=== PATIENT | male | born 1935 | race Caucasian/White ===

== ENCOUNTER 2024-08-20 11:16 | Inpatient (IN) | payer MEDICARE, OTHER ==
[~2024-08-20] VITALS: Ht 172.7 cm; Wt 59.9 kg
[2024-08-20] MEDS: IV NS 0.9% 1,000 ML BAG IV ONE ×2 (11:31→12:51)
[2024-08-20 11:55] LABS: BASOPHILS % (AUTO) 0.3 % (0.0-2.0); EOSINOPHILS % (AUTO) 0.3 % (0.0-6.0); HEMATOCRIT 36 % (39-51); HEMOGLOBIN 11.9 g/dL (13.5-17.5); LYMPHOCYTES % (AUTO) 6.5 % (20.0-44.0); MEAN CORPUSCULAR HEMOGLOBIN 31 PG (26.0-33.0); MEAN CORPUSCULAR HGB CONC 33 g/dl (31.0-36.0); MEAN CORPUSCULAR VOLUME 95 fL (80-96); MONOCYTES # (AUTO) 1.2 K/uL (0.1-1.30); MONOCYTES % (AUTO) 8.2 % (2.0-12.0); NEUTROPHILS # (AUTO) 12.5 K/uL (1.8-8.9); NEUTROPHILS % (AUTO) 84.7 % (43.0-81.0); PLATELET COUNT (AUTO) 260 K/uL (150-450); RED BLOOD CELL COUNT(AUTO) 3.81 MIL/uL (4.5-6.0); RED CELL DISTRIBUTION WIDTH 14.3 % (11.5-15.0); WHITE BLOOD COUNT (AUTO) 14.8 K/uL (4.3-11.0)
[2024-08-20 12:22] LABS: ALANINE AMINOTRANSFERASE 15 U/L (12-78); ALBUMIN 2.1 g/dL (3.4-5.0); ALKALINE PHOSPHATASE 166 U/L (46-116); ASPARTATE AMINOTRANSFERASE 14 U/L (15-37); BILIRUBIN,DIRECT 0.1 mg/dL (0.0-0.2); BILIRUBIN,TOTAL 0.3 mg/dL (0.2-1.0); CALCIUM, SERUM 8.9 mg/dL (8.5-10.1); CARBON DIOXIDE 31 mmol/L (21-32); CHLORIDE 96 mmol/L (98-107); CREATININE 1.2 mg/dL (0.6-1.3); NT-PRO BNP 339 pg/mL (0-125); POTASSIUM 4.2 mmol/L (3.5-5.1); SODIUM SERUM 133 mmol/L (136-145); TOTAL PROTEIN, SERUM 7.1 g/dL (6.4-8.2); UREA NITROGEN, BLOOD 21 mg/dL (7-18)
[2024-08-20 12:25] LABS: GLUCOSE 592 mg/dL (74-106)
[2024-08-20] MEDS ORDERED: INSULIN REGULAR, HUMAN 100 UNIT/ML 10 ML VIAL ONE (12:46)
[2024-08-20] MEDS: INSULIN REGULAR, HUMAN 100 UNIT/ML 10 ML VIAL SQ ONE (12:52)
[2024-08-20] MEDS ORDERED: LEVO100T PO (13:46)
[2024-08-20] MEDS ORDERED: CIPR2.5D14 EACHEYE (13:46)
[2024-08-20] MEDS ORDERED: LACT30003 PO (13:46)
[2024-08-20] MEDS ORDERED: ACET-868 PO (13:46)
[2024-08-20] MEDS ORDERED: DOCU100T2 PO (13:46)
[2024-08-20] MEDS ORDERED: OMEP20CA15 PO (13:46)
[2024-08-20] MEDS ORDERED: SPIR25TA6 PO (13:46)
[2024-08-20] MEDS ORDERED: CYAN-51 PO (13:46)
[2024-08-20] MEDS ORDERED: CHOL200026 PO (13:46)
[2024-08-20] MEDS ORDERED: CITA20TA19 PO (13:46)
[2024-08-20] MEDS ORDERED: AMLO5TAB4 PO (13:46)
[2024-08-20] MEDS ORDERED: GUAI100S11 GT (13:46)
[2024-08-20] MEDS ORDERED: SIMV20TA2 PO (13:46)
[2024-08-20] MEDS ORDERED: FURO-144 PO (13:46)
[2024-08-20] MEDS ORDERED: OMEG-138 PO (13:46)
[2024-08-20] MEDS ORDERED: GUAI100S69 PO (13:46)
[2024-08-20] MEDS ORDERED: TAMS-12 PO (13:46)
[2024-08-20] MEDS ORDERED: DABI150C PO (13:46)
[2024-08-20] MEDS ORDERED: IPRA3AMP22 IH (13:46)
[2024-08-20 14:56] VITALS: BP 120/72; TEMP 97.5; O2SAT 96
[2024-08-20] MEDS ORDERED: MAGNESIUM HYDROXIDE 30 ML UDC PO PRN (15:30)
[2024-08-20] MEDS ORDERED: ACETAMINOPHEN 325 MG TABLET PO PRN (15:30)
[2024-08-20] MEDS ORDERED: ONDANSETRON HCL/PF 4 MG/2 ML VIAL IVP PRN (15:30)
[2024-08-20] MEDS ORDERED: MAG HYDROX/AL HYDROX/SIMETH 30 ML UDC PO PRN (15:30)
[2024-08-20] MEDS ORDERED: ZOLPIDEM TARTRATE 5 MG TABLET PO PRN (15:30)
[2024-08-20] MEDS ORDERED: Z GUARD REMEDY 4 OZ OINT TP PRN (15:30)
[2024-08-20] MEDS ORDERED: DEXTROSE 50%-WATER 50 ML DISP.SYRIN IV PRN (15:30)
[2024-08-20] MEDS: IV NS 0.9% 1,000 ML IV PRN (15:45)
[2024-08-20] MEDS: ENOXAPARIN SODIUM 40 MG/0.4 ML DISP.SYRIN SQ SCH (15:58)
[2024-08-20] MEDS: BLOOD SUGAR DIAGNOSTIC 1 EACH STRIP VI SCH (16:46)
[2024-08-20] MEDS: INSULIN REGULAR, HUMAN 100 UNIT/ML 3 ML VIAL SQ PRN (16:48)
[2024-08-20] MEDS: LEVOFLOXACIN (250MG) 250 MG TABLET PO ONE (16:50)
[2024-08-20 20:00] VITALS: BP 110/68; TEMP 98.1; O2SAT 96
[2024-08-20 20:32] LABS: APPEARANCE,URINE CLEAR (CLEAR); BILIRUBIN,URINE NEGATIVE (NEGATIVE); BLOOD, URINE NEGATIVE Ery/uL (NEGATIVE); COLOR,URINE YELLOW (YELLOW); KETONES,URINE NEGATIVE (NEGATIVE); LEUKOCYTE ESTERASE ,URINE TRACE (NEGATIVE); NITRITE, URINE NEGATIVE (NEGATIVE); PH,URINE 6.5 (5.0-8.0); PROTEIN,URINE NEGATIVE (NEGATIVE); UGLUCOSE 2+ mg/dL (NEGATIVE); UROBILINOGEN,URINE 0.2 EU/dL (0.2)
[2024-08-20 20:43] LABS: RBC,URINE 0-2 /HPF (0-2)
[2024-08-20 20:44] LABS: ADD URINE CULTURE NO; BACTERIA,URINE Rare /HPF (None Seen); SQUAMOUS EPITHELIAL CELL,UR 0-2 /HPF (None Seen)
[2024-08-20 20:45] LABS: MUCUS,URINE Few /LPF (None Seen)
[2024-08-21] VITALS: BP 113/64; TEMP 98.2; O2SAT 94
[2024-08-21 04:00] VITALS: BP 108/68; TEMP 98.1; O2SAT 95
[2024-08-21 06:59] LABS: BASOPHILS % (AUTO) 0.4 % (0.0-2.0); EOSINOPHILS # (AUTO) 0.1 K/uL (0.0-0.7); EOSINOPHILS % (AUTO) 1.3 % (0.0-6.0); HEMATOCRIT 34 % (39-51); HEMOGLOBIN 11.3 g/dL (13.5-17.5); LYMPHOCYTES # (AUTO) 1.9 K/uL (0.8-4.8); LYMPHOCYTES % (AUTO) 16.6 % (20.0-44.0); MEAN CORPUSCULAR HEMOGLOBIN 31 PG (26.0-33.0); MEAN CORPUSCULAR HGB CONC 34 g/dl (31.0-36.0); MEAN CORPUSCULAR VOLUME 93 fL (80-96); MONOCYTES % (AUTO) 8.8 % (2.0-12.0); NEUTROPHILS # (AUTO) 8.6 K/uL (1.8-8.9); NEUTROPHILS % (AUTO) 72.9 % (43.0-81.0); PLATELET COUNT (AUTO) 239 K/uL (150-450); RED BLOOD CELL COUNT(AUTO) 3.59 MIL/uL (4.5-6.0); RED CELL DISTRIBUTION WIDTH 14.1 % (11.5-15.0); WHITE BLOOD COUNT (AUTO) 11.8 K/uL (4.3-11.0)
[2024-08-21 07:19] LABS: CALCIUM, SERUM 8.2 mg/dL (8.5-10.1); CREATININE 0.6 mg/dL (0.6-1.3); MAGNESIUM 1.7 mg/dL (1.8-2.4); PHOSPHORUS 2.5 mg/dL (2.5-4.9); POTASSIUM 3.6 mmol/L (3.5-5.1)
[2024-08-21 07:22] LABS: THYROID STIMULATING HORMONE 1.93 uIU/mL (0.358-3.74)
[2024-08-21] MEDS: PANTOPRAZOLE 40 MG TABLET.DR PO SCH (07:28)
[2024-08-21 08:00] VITALS: BP 106/58; TEMP 97.7; O2SAT 96
[2024-08-21] MEDS: MAGNESIUM OXIDE 400 MG TABLET PO ONE (11:42)
[2024-08-21 12:00] VITALS: BP 107/62; TEMP 98.2; O2SAT 92
[2024-08-21 16:00] VITALS: BP 115/66; TEMP 98.1; O2SAT 98
[2024-08-21] MEDS: LEVOFLOXACIN (250MG) 250 MG TABLET PO SCH (16:06)
[2024-08-21 20:00] VITALS: BP 118/65; TEMP 98.4; O2SAT 96
[2024-08-21] MEDS: *INSULIN REGULAR(HUMULIN R)HUM 100 UNIT/ML VIAL SQ PRN (21:26)
[2024-08-22] VITALS: BP 107/63; TEMP 98.2; O2SAT 96
[2024-08-22 04:00] VITALS: BP 127/68; TEMP 98.4; O2SAT 100
[2024-08-22 07:16] LABS: BASOPHILS % (AUTO) 0.4 % (0.0-2.0); EOSINOPHILS # (AUTO) 0.1 K/uL (0.0-0.7); EOSINOPHILS % (AUTO) 1.2 % (0.0-6.0); HEMATOCRIT 35 % (39-51); HEMOGLOBIN 11.7 g/dL (13.5-17.5); LYMPHOCYTES # (AUTO) 1.8 K/uL (0.8-4.8); MEAN CORPUSCULAR HEMOGLOBIN 32 PG (26.0-33.0); MEAN CORPUSCULAR HGB CONC 34 g/dl (31.0-36.0); MEAN CORPUSCULAR VOLUME 94 fL (80-96); MONOCYTES % (AUTO) 10.1 % (2.0-12.0); NEUTROPHILS # (AUTO) 6.6 K/uL (1.8-8.9); NEUTROPHILS % (AUTO) 69.3 % (43.0-81.0); PLATELET COUNT (AUTO) 244 K/uL (150-450); RED BLOOD CELL COUNT(AUTO) 3.68 MIL/uL (4.5-6.0); RED CELL DISTRIBUTION WIDTH 14.5 % (11.5-15.0); WHITE BLOOD COUNT (AUTO) 9.5 K/uL (4.3-11.0)
[2024-08-22 07:30] VITALS: BP 117/57; TEMP 97.5; O2SAT 97
[2024-08-22 07:43] LABS: CALCIUM, SERUM 8.5 mg/dL (8.5-10.1); CREATININE 0.5 mg/dL (0.6-1.3); MAGNESIUM 1.8 mg/dL (1.8-2.4)
[2024-08-22 08:00] VITALS: BP 118/68; TEMP 98.4; O2SAT 96
[2024-08-22 16:00] VITALS: BP 110/91; TEMP 97.5; O2SAT 99
[2024-08-22 20:59] VITALS: BP 118/68; TEMP 98.4; O2SAT 96
[2024-08-23] VITALS: BP 130/73; TEMP 98.6; O2SAT 97
[2024-08-23 06:55] LABS: CALCIUM, SERUM 8.3 mg/dL (8.5-10.1); CREATININE 0.5 mg/dL (0.6-1.3); POTASSIUM 3.6 mmol/L (3.5-5.1)
[2024-08-23 07:03] LABS: BASOPHILS % (AUTO) 0.4 % (0.0-2.0); EOSINOPHILS # (AUTO) 0.1 K/uL (0.0-0.7); EOSINOPHILS % (AUTO) 1.2 % (0.0-6.0); HEMATOCRIT 33 % (39-51); HEMOGLOBIN 11.4 g/dL (13.5-17.5); LYMPHOCYTES # (AUTO) 1.7 K/uL (0.8-4.8); LYMPHOCYTES % (AUTO) 16.4 % (20.0-44.0); MEAN CORPUSCULAR HEMOGLOBIN 32 PG (26.0-33.0); MEAN CORPUSCULAR HGB CONC 34 g/dl (31.0-36.0); MEAN CORPUSCULAR VOLUME 93 fL (80-96); MONOCYTES # (AUTO) 1.1 K/uL (0.1-1.30); MONOCYTES % (AUTO) 10.6 % (2.0-12.0); NEUTROPHILS # (AUTO) 7.3 K/uL (1.8-8.9); NEUTROPHILS % (AUTO) 71.4 % (43.0-81.0); PLATELET COUNT (AUTO) 240 K/uL (150-450); RED BLOOD CELL COUNT(AUTO) 3.57 MIL/uL (4.5-6.0); RED CELL DISTRIBUTION WIDTH 14.5 % (11.5-15.0); WHITE BLOOD COUNT (AUTO) 10.2 K/uL (4.3-11.0)
[2024-08-23 07:15] LABS: ALBUMIN 1.8 g/dL (3.4-5.0); BILIRUBIN,TOTAL 0.5 mg/dL (0.2-1.0); CALCIUM, SERUM 8.5 mg/dL (8.5-10.1); CREATININE 0.5 mg/dL (0.6-1.3); MAGNESIUM 1.9 mg/dL (1.8-2.4); PHOSPHORUS 2.8 mg/dL (2.5-4.9); POTASSIUM 3.6 mmol/L (3.5-5.1); TOTAL PROTEIN, SERUM 6.2 g/dL (6.4-8.2)
[2024-08-23 08:53] VITALS: BP 108/70; TEMP 98.1; O2SAT 100
[2024-08-23 16:19] VITALS: BP 99/80; TEMP 97.9; O2SAT 99
[2024-08-23 20:00] VITALS: BP_SYST 112; BP_SYST 116; BP_DIAS 67; BP_DIAS 68; TEMP 97.9; TEMP 98.1; O2SAT 97; O2SAT 98
[2024-08-24 07:28] LABS: CALCIUM, SERUM 8.4 mg/dL (8.5-10.1); CREATININE 0.6 mg/dL (0.6-1.3); POTASSIUM 3.9 mmol/L (3.5-5.1)
[2024-08-24 08:00] VITALS: BP 118/64; TEMP 97.7; O2SAT 98
[2024-08-24] MEDS ORDERED: *INS REG SQ (10:40)
[2024-08-24] MEDS ORDERED: INSU100V28 SQ (10:40)
[2024-08-24 16:00] VITALS: BP 91/57; TEMP 98.1; O2SAT 96
[2024-08-24 20:00] VITALS: BP 108/65; TEMP 99; O2SAT 97
[2024-08-25 08:00] VITALS: BP 116/74; TEMP 97.7; O2SAT 99
[2024-08-25 08:00] LABS: CALCIUM, SERUM 8.5 mg/dL (8.5-10.1); CREATININE 0.5 mg/dL (0.6-1.3); POTASSIUM 3.8 mmol/L (3.5-5.1)
== END 2024-08-25 12:25 | DRG 638 ==
LOC: ER 11:22 → TELE 13:49 → MED 08-23
PROVIDERS: ATTEND Nurse Practitioner Acute Care
DX: E11.65 Type 2 diabetes mellitus with hyperglycemia (principal); E44.0 Moderate protein-calorie malnutrition; E87.1 Hypo-osmolality and hyponatremia; I48.91 Unspecified atrial fibrillation; Z86.711 Personal history of pulmonary embolism; I11.9 Hypertensive heart disease without heart failure; Z87.820 Personal history of traumatic brain injury; I69.398 Other sequelae of cerebral infarction; R13.10 Dysphagia, unspecified; E88.09 Other disorders of plasma-protein metabolism, not elsewhere classified; E03.9 Hypothyroidism, unspecified; Z93.1 Gastrostomy status; Z79.4 Long term (current) use of insulin; Z79.899 Other long term (current) drug therapy
CPT/HCPCS: 36415; 71045-TC; 80048-TC; 80053-TC; 80061-TC; 80076-TC; 81001; 82010-TC; 82803-TC; 82962-TC; 83735-TC; 83880; 84100-TC; 84443-TC; 84484-TC; 85025-TC; 87081-TC; 87086-TC; 97110-TC; 97116-TC; 97530-TC; A4223; G0378; J1650; J1815; J7030

== ENCOUNTER 2024-11-06 08:30 | Inpatient (IN) | payer MEDICARE, OTHER ==
[~2024-11-06] VITALS: Ht 167.6 cm; Wt 60.8 kg
[2024-11-06] VITALS (48 sets, daily range): BP systolic 72–120; BP diastolic 50–73; TEMP 98.4–99.1; O2SAT 93–100
[~2024-11-06 08:30] MED LIST: *INS REG SQ; ACET-868 PO; AMLO5TAB4 PO; CHOL200026 PO; CITA20TA19 PO; CYAN-51 PO; DABI150C PO; DOCU100T2 PO; FURO-144 PO; GUAI100S11 GT; GUAI100S69 PO; INSU100V28 SQ; IPRA3AMP22 IH; LACT30003 PO; LEVO100T PO; OMEG-138 PO; OMEP20CA15 PO; SIMV20TA2 PO; SPIR25TA6 PO; TAMS-12 PO
[2024-11-06 08:50] LABS: PLATELET COUNT (AUTO) 293 K/uL (150-450); RED BLOOD CELL COUNT(AUTO) 3.83 MIL/uL (4.5-6.0); RED CELL DISTRIBUTION WIDTH 14.8 % (11.5-15.0); WHITE BLOOD COUNT (AUTO) 17.7 K/uL (4.3-11.0)
[2024-11-06 08:57] LABS: SODIUM SERUM 136 mmol/L (136-145)
[2024-11-06 08:58] LABS: CALCIUM, SERUM 9.3 mg/dL (8.5-10.1); CREATININE 1.0 mg/dL (0.6-1.3); UREA NITROGEN, BLOOD 42 mg/dL (7-18)
[2024-11-06] MEDS: AZITHROMYCIN 500 MG in IV D5W 250 ML IV ONE (09:00)
[2024-11-06 09:02] LABS: INR 1.3 (0.91-1.10)
[2024-11-06 09:03] LABS: ASPARTATE AMINOTRANSFERASE 25 U/L (15-37); TOTAL PROTEIN, SERUM 8.2 g/dL (6.4-8.2)
[2024-11-06 09:06] LABS: LACTIC ACID 3.5 mmol/L (0.4-2.0)
[2024-11-06] MEDS: IV NS 0.9% 1,000 ML BAG IV ONE (09:08)
[2024-11-06] MEDS: ACETAMINOPHEN 650 MG/SUPP.RECT RC ONE (09:09)
[2024-11-06] MEDS: CEFTRIAXONE 1GM BAG (ER ONLY) 50 ML IV ONE (09:09)
[2024-11-06] MEDS ORDERED: INSU100V7 SQ (09:21)
[2024-11-06] MEDS ORDERED: LEVO112T2 PO (09:21)
[2024-11-06] MEDS ORDERED: HUM100IN SQ (09:21)
[2024-11-06] MEDS ORDERED: CITA10TA17 PO (09:21)
[2024-11-06] MEDS ORDERED: METF-440 PO (09:21)
[2024-11-06] MEDS ORDERED: SODI100037 PO (09:21)
[2024-11-06] MEDS ORDERED: MELA5TAB PO (09:21)
[2024-11-06] MEDS ORDERED: SENN-261 PO (09:21)
[2024-11-06 09:22] LABS: ABG BASE EXCESS 6.0 mmol/L (-2.0-3.0); ABG OXYGEN SATURATION 99.2 % (94.0-98.0); ABG PCO2 45.6 mmHg (35.0-48.0); ABG PH 7.448 (7.350-7.450); ABG PO2 383.8 mmHg (83.0-108.0); ABG TOTAL HEMOGLOBIN 11.6 G/dL (13.5-17.5); FRACTIONATED INSPIRED OXYGEN 100.0 %; SET RATE, BG 16.0; SITE, ABG RIGHT BRACHIAL
[2024-11-06 09:37] LABS: APPEARANCE,URINE CLEAR (CLEAR); BLOOD, URINE 3+ Ery/uL (NEGATIVE); LEUKOCYTE ESTERASE ,URINE 3+ (NEGATIVE); NITRITE, URINE NEGATIVE (NEGATIVE); UGLUCOSE NEGATIVE (NEGATIVE)
[2024-11-06 09:47] LABS: ADD URINE CULTURE YES
[2024-11-06] MEDS: DEXTROSE 50%-WATER 50 ML DISP.SYRIN IVP ONE (10:05)
[2024-11-06] MEDS ORDERED: ONDANSETRON HCL/PF 4 MG/2 ML VIAL IVP PRN (10:30)
[2024-11-06] MEDS ORDERED: IPRATROPIUM NEB FS 0.5 MG/2.5 ML AMPUL.NEB NEB PRN (10:30)
[2024-11-06] MEDS ORDERED: DOSING PER PHARMACY-CEFEPIME IVPB XX PRN (10:30)
[2024-11-06] MEDS ORDERED: DOSING PER PHARMACY-VANCOMYCIN IV XX PRN (10:30)
[2024-11-06] MEDS ORDERED: KETOROLAC TROMETHAMINE 15 MG/ML VIAL ONE (10:42)
[2024-11-06] MEDS: KETOROLAC TROMETHAMINE INJ 30 MG/ML VIAL IV STA (10:45)
[2024-11-06] MEDS ORDERED: ENOXAPARIN SODIUM 40 MG/0.4 ML DISP.SYRIN SQ SCH (11:00)
[2024-11-06] MEDS: DABIGATRAN ETEXILATE MESYLATE 75 MG CAPSULE PO SCH (12:00)
[2024-11-06] MEDS ORDERED: DEXTROSE 50%-WATER 50 ML DISP.SYRIN IV PRN (12:30)
[2024-11-06] MEDS: CEFEPIME 2 GM in IV D5W 100 ML IV SCH (12:51)
[2024-11-06] MEDS: IV D5/ 0.9% NACL 1,000 ML IV SCH (13:03)
[2024-11-06] MEDS: VANCOMYCIN 1 GM in IV D5W 250ml IV ONE (13:48)
[2024-11-06] MEDS: NOREPINEPHRINE 8 MG in IV D5W 242 ML IV PRN (14:19)
[2024-11-06] MEDS: AMLODIPINE BESYLATE 5 MG TABLET PO SCH (17:00)
[2024-11-06] MEDS ORDERED: AMIODARONE 450 MG in IV D5W 250 ML IV PRN (17:30)
[2024-11-06] MEDS: BLOOD SUGAR DIAGNOSTIC 1 EACH STRIP IN SCH (17:54)
[2024-11-06] MEDS: INSULIN REGULAR, HUMAN 100 UNIT/ML 3 ML VIAL SQ PRN (17:58)
[2024-11-06] MEDS: AMIODARONE 150 MG in IV D5W 100 ML IV ONE (18:10)
[2024-11-06] MEDS: AMIODARONE 450 MG in IV D5W 241 ML IV PRN (19:07)
[2024-11-06] MEDS: PHENYLEPHRINE 50 MG in IV NS 0.9% 245 ML IV PRN (20:17)
[2024-11-06 21:12] LABS: HIV-1/2 ANTIBODY NON REACTIVE (NONREACTIVE)
[2024-11-06] MEDS: TAMSULOSIN 0.4 MG CAP.SR.24H PO SCH (21:28)
[2024-11-06] MEDS: SIMVASTATIN 20 MG TABLET PO SCH (21:28)
[2024-11-06] MEDS: SENNOSIDES 8.6 MG TABLET PO SCH (21:28)
[2024-11-07] VITALS (99 sets, daily range): BP systolic 82–133; BP diastolic 53–83; TEMP 97.7–98.7; O2SAT 86–100
[2024-11-07 05:11] LABS: PLATELET COUNT (AUTO) 230 K/uL (150-450); RED BLOOD CELL COUNT(AUTO) 2.95 MIL/uL (4.5-6.0); RED CELL DISTRIBUTION WIDTH 14.9 % (11.5-15.0)
[2024-11-07 05:36] LABS: WHITE BLOOD COUNT (AUTO) 32.2 K/uL (4.3-11.0)
[2024-11-07 06:01] LABS: CREATINE KINASE, TOTAL 28 U/L (39-308); LDL 28 mg/dL (0-99)
[2024-11-07 06:29] LABS: ASPARTATE AMINOTRANSFERASE 42 U/L (15-37); CALCIUM, SERUM 8.1 mg/dL (8.5-10.1); CREATININE 0.9 mg/dL (0.6-1.3); PHOSPHORUS 3.6 mg/dL (2.5-4.9); SODIUM SERUM 138 mmol/L (136-145); TOTAL PROTEIN, SERUM 6.8 g/dL (6.4-8.2); UREA NITROGEN, BLOOD 40 mg/dL (7-18)
[2024-11-07] MEDS: LEVOTHYROXINE SODIUM 112 MCG TABLET PO SCH (07:30)
[2024-11-07 08:02] LABS: LYMPHOCYTES % (MANUAL) 1 % (16-48); MONOCYTES % (MANUAL) 5 % (0-11.0); NEUTROPHILS % (MANUAL) 94 (42-76)
[2024-11-07 08:03] LABS: PLATELET ESTIMATE ADEQUATE
[2024-11-07] MEDS: PANTOPRAZOLE 40 MG VIAL IV SCH (08:20)
[2024-11-07] MEDS: CITALOPRAM HYDROBROMIDE 10 MG TABLET PO SCH (09:00)
[2024-11-07] MEDS: DOCUSATE SODIUM 100 MG CAPSULE PO SCH (09:00)
[2024-11-07] MEDS: HYDROCORTISONE SOD SUCCINATE 100 MG/2 ML VIAL IV SCH (09:00)
[2024-11-07] MEDS: Z GUARD REMEDY 4 OZ OINT TP SCH (10:00)
[2024-11-07] MEDS: VANCOMYCIN HCL 1.25 GM in IV D5W 250 ML IV SCH (13:13)
[2024-11-07 15:24] LABS: CREATININE, URINE 48.0 MG/DL (30.0-125.0); URINE SODIUM, RANDOM 11.0 mmol/l (40-220); URINE TOTAL PROTEIN 48.2 mg/dL (0-11.9)
[2024-11-07] MEDS: ENOXAPARIN SODIUM 60 MG/0.6 ML DISP.SYRIN SQ SCH (17:41)
[2024-11-07] MEDS: IV D5/ 0.9% NACL 1,000 ML IV PRN (19:44)
[2024-11-08] VITALS (78 sets, daily range): BP systolic 91–138; BP diastolic 57–83; TEMP 98–98.4; O2SAT 91–100
[2024-11-08 05:02] LABS: PLATELET COUNT (AUTO) 218 K/uL (150-450); RED BLOOD CELL COUNT(AUTO) 3.00 MIL/uL (4.5-6.0); RED CELL DISTRIBUTION WIDTH 15.1 % (11.5-15.0); WHITE BLOOD COUNT (AUTO) 27.5 K/uL (4.3-11.0)
[2024-11-08 05:26] LABS: CALCIUM, SERUM 8.7 mg/dL (8.5-10.1); CREATININE 0.8 mg/dL (0.6-1.3); SODIUM SERUM 137.0 mmol/L (136-145); UREA NITROGEN, BLOOD 37.0 mg/dL (7-18)
[2024-11-08] MEDS: CEFEPIME 2 GM in IV D5W 100 ML IV SCH (08:38)
[2024-11-08] MEDS: ACETAMINOPHEN 325 MG TABLET PO PRN (10:54)
[2024-11-08] MEDS: DIGOXIN INJ 0.5 MG/2 ML AMPUL IV SCH (12:15)
[2024-11-09] VITALS (39 sets, daily range): BP systolic 99–142; BP diastolic 64–83; TEMP 97.8–99.2; O2SAT 92–100
[2024-11-09] MEDS: ACETAMINOPHEN 650 MG/SUPP.RECT RC PRN (01:46)
[2024-11-09 04:46] LABS: PLATELET COUNT (AUTO) 216 K/uL (150-450); RED BLOOD CELL COUNT(AUTO) 3.07 MIL/uL (4.5-6.0); RED CELL DISTRIBUTION WIDTH 14.7 % (11.5-15.0); WHITE BLOOD COUNT (AUTO) 17.8 K/uL (4.3-11.0)
[2024-11-09] MEDS: FENTANYL PF 100MCG/2ML AMPUL IV ONE (04:54)
[2024-11-09 05:06] LABS: CALCIUM, SERUM 9.0 mg/dL (8.5-10.1); CREATININE 0.8 mg/dL (0.6-1.3); SODIUM SERUM 139.0 mmol/L (136-145); UREA NITROGEN, BLOOD 32.0 mg/dL (7-18)
[2024-11-09 05:19] LABS: NT-PRO BNP 6542.0 pg/mL (0-125)
[2024-11-09 06:07] LABS: PTH, INTACT 54 pg/mL (15-65)
[2024-11-09 07:25] LABS: ABG BASE EXCESS 2.9 mmol/L (-2.0-3.0); ABG OXYGEN SATURATION 95.5 % (94.0-98.0); ABG PCO2 49.2 mmHg (35.0-48.0); ABG PH 7.382 (7.350-7.450); ABG PO2 82.3 mmHg (83.0-108.0); ABG TOTAL HEMOGLOBIN 10.4 G/dL (13.5-17.5); FLOW, BLOOD GAS 40.00 L/min (0.00-30.00); FRACTIONATED INSPIRED OXYGEN 40.0 %; SITE, ABG LEFT RADIAL
[2024-11-09] MEDS: MEROPENEM 1 G in IV NS 0.9% 100 ML IV SCH (12:42)
[2024-11-09] MEDS: HYDROCORTISONE SOD SUCCINATE 100 MG/2 ML VIAL IV SCH (12:58)
[2024-11-09] MEDS: Z GUARD REMEDY 4 OZ OINT TP PRN (21:07)
[2024-11-10] VITALS (20 sets, daily range): BP systolic 105–147; BP diastolic 57–102; TEMP 97–97.6; O2SAT 94–100
[2024-11-10 04:07] LABS: PLATELET COUNT (AUTO) 209 K/uL (150-450); RED BLOOD CELL COUNT(AUTO) 3.23 MIL/uL (4.5-6.0); RED CELL DISTRIBUTION WIDTH 14.5 % (11.5-15.0); WHITE BLOOD COUNT (AUTO) 15.4 K/uL (4.3-11.0)
[2024-11-10 04:16] LABS: CALCIUM, SERUM 9.0 mg/dL (8.5-10.1); CREATININE 0.7 mg/dL (0.6-1.3); SODIUM SERUM 149.0 mmol/L (136-145); UREA NITROGEN, BLOOD 27.0 mg/dL (7-18)
[2024-11-10 06:07] LABS: *SPE A/G RATIO 0.6 (0.7-1.7); *SPE ALBUMIN 2.3 g/dL (2.9-4.4); *SPE ALPHA-1-GLOBULIN 0.4 g/dL (0.0-0.4); *SPE ALPHA-2-GLOBULIN 0.8 g/dL (0.4-1.0); *SPE BETA GLOBULIN 0.8 g/dL (0.7-1.3); *SPE GLOBULIN, TOTAL 3.6 g/dL (2.2-3.9); *SPE M-SPIKE 0.5 g/dL (Not Observed); *SPE PROTEIN TOTAL 5.9 g/dL (6.0-8.5); *SPEGAMMA GLOBULIN 1.6 g/dL (0.4-1.8)
[2024-11-10] MEDS ORDERED: IV D5W 1,000 ML IV PRN (09:00)
[2024-11-10] MEDS: IV D5W 1,000 ML IV SCH (09:17)
[2024-11-10] MEDS: POTASSIUM CL. PREMIX PERIPHER. 50 ML IV SCH (09:37)
[2024-11-10] MEDS: HYDROCORTISONE SOD SUCCINATE 100 MG/2 ML VIAL IV SCH (12:03)
[2024-11-11] VITALS (8 sets, daily range): BP systolic 114–152; BP diastolic 62–81; TEMP 97.5–98.4; O2SAT 82–100
[2024-11-11 07:35] LABS: PLATELET COUNT (AUTO) 220 K/uL (150-450); RED BLOOD CELL COUNT(AUTO) 3.53 MIL/uL (4.5-6.0); RED CELL DISTRIBUTION WIDTH 14.6 % (11.5-15.0); WHITE BLOOD COUNT (AUTO) 10.2 K/uL (4.3-11.0)
[2024-11-11 07:55] LABS: CALCIUM, SERUM 8.8 mg/dL (8.5-10.1); CREATININE 0.8 mg/dL (0.6-1.3); SODIUM SERUM 147.0 mmol/L (136-145); UREA NITROGEN, BLOOD 20.0 mg/dL (7-18)
[2024-11-11] MEDS ORDERED: POTASSIUM CHLORIDE 20 MEQ TAB.PRT.SR PO SCH (09:30)
[2024-11-11] MEDS: POTASSIUM CHLORIDE 20 MEQ TAB.PRT.SR PO ONE (09:54)
[2024-11-11] MEDS: IV D5W 1,000 ML IV PRN (12:55)
[2024-11-11] MEDS ORDERED: DOSING PER PHARMACY-AMIODARONE DRIP XX PRN (13:00)
[2024-11-11] MEDS ORDERED: AMIODARONE 450 MG in IV D5W 241 ML IV PRN (13:30)
[2024-11-12] VITALS (27 sets, daily range): BP systolic 121–157; BP diastolic 63–87; TEMP 97.7–98.3; O2SAT 90–100
[2024-11-12 05:17] LABS: ABG BASE EXCESS 9.7 mmol/L (-2.0-3.0); ABG OXYGEN SATURATION 93.5 % (94.0-98.0); ABG PCO2 67.9 mmHg (35.0-48.0); ABG PH 7.359 (7.350-7.450); ABG PO2 70.1 mmHg (83.0-108.0); ABG TOTAL HEMOGLOBIN 11.6 G/dL (13.5-17.5); FLOW, BLOOD GAS 15.00 L/min (0.00-30.00); SITE, ABG RIGHT RADIAL
[2024-11-12 07:12] LABS: PLATELET COUNT (AUTO) 184 K/uL (150-450); RED BLOOD CELL COUNT(AUTO) 3.42 MIL/uL (4.5-6.0); RED CELL DISTRIBUTION WIDTH 14.5 % (11.5-15.0); WHITE BLOOD COUNT (AUTO) 11.6 K/uL (4.3-11.0)
[2024-11-12 07:49] LABS: ASPARTATE AMINOTRANSFERASE 25.0 U/L (15-37); CALCIUM, SERUM 8.3 mg/dL (8.5-10.1); CREATININE 0.8 mg/dL (0.6-1.3); PHOSPHORUS 1.8 mg/dL (2.5-4.9); SODIUM SERUM 144.0 mmol/L (136-145); TOTAL PROTEIN, SERUM 6.5 g/dL (6.4-8.2); UREA NITROGEN, BLOOD 24.0 mg/dL (7-18)
[2024-11-12] MEDS: HYDROCORTISONE SOD SUCCINATE 100 MG/2 ML VIAL IV SCH (09:04)
[2024-11-12] MEDS: PANTOPRAZOLE 40 MG TABLET.DR PO SCH (09:34)
[2024-11-12] MEDS: POTASSIUM PHOSPHATE MM 15 MMOL in IV NS 0.9% 250 ML IV SCH (10:51)
[2024-11-12] MEDS: AMIODARONE 150 MG in IV D5W 100 ML IV ONE (20:53)
[2024-11-12] MEDS: ALBUTEROL FS 2.5 MG/3 ML VIAL.NEB NEB PRN (22:59)
[2024-11-13] VITALS (35 sets, daily range): BP systolic 100–156; BP diastolic 64–91; TEMP 98–98.9; O2SAT 90–100
[2024-11-13] MEDS: POTASSIUM CL. PREMIX PERIPHER. 50 ML IV SCH (08:51)
[2024-11-13] MEDS: FUROSEMIDE 40 MG/4 ML VIAL IV SCH (08:52)
[2024-11-13] MEDS: AMIODARONE 450 MG in IV D5W 241 ML IV PRN (08:53)
[2024-11-13] MEDS ORDERED: AMIODARONE 450 MG in IV D5W 250 ML IV PRN (09:00)
[2024-11-13 10:22] LABS: PLATELET COUNT (AUTO) 175 K/uL (150-450); RED BLOOD CELL COUNT(AUTO) 3.05 MIL/uL (4.5-6.0); RED CELL DISTRIBUTION WIDTH 14.9 % (11.5-15.0); WHITE BLOOD COUNT (AUTO) 10.9 K/uL (4.3-11.0)
[2024-11-13 10:34] LABS: ASPARTATE AMINOTRANSFERASE 26.0 U/L (15-37); CALCIUM, SERUM 8.1 mg/dL (8.5-10.1); CREATININE 0.7 mg/dL (0.6-1.3); PHOSPHORUS 1.8 mg/dL (2.5-4.9); TOTAL PROTEIN, SERUM 6.0 g/dL (6.4-8.2); UREA NITROGEN, BLOOD 15.0 mg/dL (7-18)
[2024-11-13 10:48] LABS: SODIUM SERUM 141.0 mmol/L (136-145)
[2024-11-13] MEDS: NEUTRA PHOS 1 POWD.PACKET PO ONE (16:32)
[2024-11-14] VITALS (27 sets, daily range): BP systolic 122–155; BP diastolic 57–75; TEMP 98–98.2; O2SAT 95–100
[2024-11-14] MEDS: HYDROCODONE/APAP 5/325MG TABLET PO PRN (04:51)
[2024-11-14 05:01] LABS: PLATELET COUNT (AUTO) 183 K/uL (150-450); RED BLOOD CELL COUNT(AUTO) 2.96 MIL/uL (4.5-6.0); RED CELL DISTRIBUTION WIDTH 14.4 % (11.5-15.0); WHITE BLOOD COUNT (AUTO) 11.4 K/uL (4.3-11.0)
[2024-11-14 05:24] LABS: ASPARTATE AMINOTRANSFERASE 23.0 U/L (15-37); CALCIUM, SERUM 7.8 mg/dL (8.5-10.1); CREATININE 0.6 mg/dL (0.6-1.3); PHOSPHORUS 2.0 mg/dL (2.5-4.9); TOTAL PROTEIN, SERUM 5.8 g/dL (6.4-8.2); UREA NITROGEN, BLOOD 14.0 mg/dL (7-18)
[2024-11-14 05:51] LABS: SODIUM SERUM 140.0 mmol/L (136-145)
[2024-11-14] MEDS: AMIODARONE HCL 200 MG TABLET PO SCH ×2 (08:16→09:20)
[2024-11-14] MEDS: NEUTRA PHOS 1 POWD.PACKET PO ONE (17:09)
[2024-11-14] MEDS: SENNOSIDES 8.6 MG TABLET PO SCH (21:38)
[2024-11-15] VITALS (32 sets, daily range): BP systolic 110–161; BP diastolic 56–75; TEMP 97.6–99.5; O2SAT 80–100
[2024-11-15 13:31] LABS: PLATELET COUNT (AUTO) 182 K/uL (150-450); RED BLOOD CELL COUNT(AUTO) 2.99 MIL/uL (4.5-6.0); RED CELL DISTRIBUTION WIDTH 15.2 % (11.5-15.0); WHITE BLOOD COUNT (AUTO) 13.9 K/uL (4.3-11.0)
[2024-11-15 13:50] LABS: ASPARTATE AMINOTRANSFERASE 19.0 U/L (15-37); CALCIUM, SERUM 7.8 mg/dL (8.5-10.1); CREATININE 0.5 mg/dL (0.6-1.3); PHOSPHORUS 2.4 mg/dL (2.5-4.9); SODIUM SERUM 144.0 mmol/L (136-145); TOTAL PROTEIN, SERUM 5.8 g/dL (6.4-8.2); UREA NITROGEN, BLOOD 14.0 mg/dL (7-18)
[2024-11-15] MEDS: NEUTRA PHOS 1 POWD.PACKET PO ONE (15:33)
[2024-11-16] VITALS (34 sets, daily range): BP systolic 128–173; BP diastolic 58–86; TEMP 97.5–99; O2SAT 60–100
[2024-11-16 04:37] LABS: PLATELET COUNT (AUTO) 178 K/uL (150-450); RED BLOOD CELL COUNT(AUTO) 3.00 MIL/uL (4.5-6.0); RED CELL DISTRIBUTION WIDTH 14.8 % (11.5-15.0); WHITE BLOOD COUNT (AUTO) 18.0 K/uL (4.3-11.0)
[2024-11-16 05:32] LABS: LACTIC ACID 0.9 mmol/L (0.4-2.0)
[2024-11-16 06:10] LABS: ASPARTATE AMINOTRANSFERASE 21.0 U/L (15-37); CALCIUM, SERUM 8.1 mg/dL (8.5-10.1); CREATININE 0.5 mg/dL (0.6-1.3); NT-PRO BNP 636.0 pg/mL (0-125); PHOSPHORUS 2.4 mg/dL (2.5-4.9); SODIUM SERUM 146.0 mmol/L (136-145); TOTAL PROTEIN, SERUM 6.1 g/dL (6.4-8.2); UREA NITROGEN, BLOOD 13.0 mg/dL (7-18)
[2024-11-16] MEDS: IV D5W 1,000 ML IV PRN (13:48)
[2024-11-16] MEDS: NEUTRA PHOS 1 POWD.PACKET PO ONE (15:30)
[2024-11-17] VITALS (28 sets, daily range): BP systolic 129–166; BP diastolic 54–73; TEMP 97.8–98.2; O2SAT 92–100
[2024-11-17 04:17] LABS: PLATELET COUNT (AUTO) 185 K/uL (150-450); RED BLOOD CELL COUNT(AUTO) 3.06 MIL/uL (4.5-6.0); RED CELL DISTRIBUTION WIDTH 15.2 % (11.5-15.0); WHITE BLOOD COUNT (AUTO) 17.1 K/uL (4.3-11.0)
[2024-11-17 04:39] LABS: ASPARTATE AMINOTRANSFERASE 21.0 U/L (15-37); CALCIUM, SERUM 8.2 mg/dL (8.5-10.1); CREATININE 0.5 mg/dL (0.6-1.3); PHOSPHORUS 2.6 mg/dL (2.5-4.9); SODIUM SERUM 145.0 mmol/L (136-145); TOTAL PROTEIN, SERUM 6.4 g/dL (6.4-8.2); UREA NITROGEN, BLOOD 14.0 mg/dL (7-18)
[2024-11-17 09:43] LABS: ABG BASE EXCESS 15.1 mmol/L (-2.0-3.0); ABG OXYGEN SATURATION 96.9 % (94.0-98.0); ABG PCO2 84.3 mmHg (35.0-48.0); ABG PH 7.334 (7.350-7.450); ABG PO2 98.1 mmHg (83.0-108.0); ABG TOTAL HEMOGLOBIN 10.0 G/dL (13.5-17.5); FLOW, BLOOD GAS 60.00 L/min (0.00-30.00); FRACTIONATED INSPIRED OXYGEN 65.0 %; SITE, ABG LEFT RADIAL
[2024-11-17] MEDS: KETOROLAC TROMETHAMINE 15 MG/ML VIAL IV ONE (15:25)
== END 2024-11-17 18:17 | disposition hospice, inpatient (51) | DRG 871 ==
LOC: ER 08:41 → ICU 10:04 → TELE-TD 11-10 15:18 → TELE1 11-11 12:00 → ICU 11-12 06:30
PROVIDERS: ADMIT Nurse Practitioner Acute Care
PROC: 5A1935Z Respiratory Ventilation, Less than 24 Consecutive Hours (ICD-10-PCS; principal; 2024-11-06)
PROC: 5A09457 Assistance with Respiratory Ventilation, 24-96 Consecutive Hours, Continuous Positive Airway Pressure (ICD-10-PCS; 2024-11-06)
PROC: 02HV33Z Insertion of Infusion Device into Superior Vena Cava, Percutaneous Approach (ICD-10-PCS; 2024-11-06)
PROC: B548ZZA Ultrasonography of Superior Vena Cava, Guidance (ICD-10-PCS; 2024-11-06)
PROC: 5A09357 Assistance with Respiratory Ventilation, Less than 24 Consecutive Hours, Continuous Positive Airway Pressure (ICD-10-PCS; 2024-11-12)
DX: A41.51 Sepsis due to Escherichia coli [E. coli] (principal); J15.69 Pneumonia due to other Gram-negative bacteria; J96.01 Acute respiratory failure with hypoxia; R65.21 Severe sepsis with septic shock; J69.0 Pneumonitis due to inhalation of food and vomit; E11.52 Type 2 diabetes mellitus with diabetic peripheral angiopathy with gangrene; Z16.12 Extended spectrum beta lactamase (ESBL) resistance; E44.0 Moderate protein-calorie malnutrition; N39.0 Urinary tract infection, site not specified; L97.919 Non-pressure chronic ulcer of unspecified part of right lower leg with unspecified severity; I70.261 Atherosclerosis of native arteries of extremities with gangrene, right leg; Z16.24 Resistance to multiple antibiotics; E87.4 Mixed disorder of acid-base balance; E87.0 Hyperosmolality and hypernatremia; I48.20 Chronic atrial fibrillation, unspecified; I11.0 Hypertensive heart disease with heart failure; R65.20 Severe sepsis without septic shock; I50.9 Heart failure, unspecified; E11.40 Type 2 diabetes mellitus with diabetic neuropathy, unspecified; E86.0 Dehydration; Z20.822 Contact with and (suspected) exposure to COVID-19; B96.20 Unspecified Escherichia coli [E. coli] as the cause of diseases classified elsewhere; B96.5 Pseudomonas (aeruginosa) (mallei) (pseudomallei) as the cause of diseases classified elsewhere; D64.9 Anemia, unspecified; Z66 Do not resuscitate; Z51.5 Encounter for palliative care; I69.398 Other sequelae of cerebral infarction; Z74.01 Bed confinement status; Z86.711 Personal history of pulmonary embolism; E03.9 Hypothyroidism, unspecified; E88.09 Other disorders of plasma-protein metabolism, not elsewhere classified; E78.5 Hyperlipidemia, unspecified; B96.89 Other specified bacterial agents as the cause of diseases classified elsewhere; E11.649 Type 2 diabetes mellitus with hypoglycemia without coma; F32.A Depression, unspecified; Z79.01 Long term (current) use of anticoagulants; Z79.4 Long term (current) use of insulin; Z79.84 Long term (current) use of oral hypoglycemic drugs; Z79.899 Other long term (current) drug therapy; R13.10 Dysphagia, unspecified; Y95 Nosocomial condition; M89.8X9 Other specified disorders of bone, unspecified site; K21.9 Gastro-esophageal reflux disease without esophagitis; K59.00 Constipation, unspecified; I77.1 Stricture of artery
CPT/HCPCS: 31720; 36415; 36569; 36600; 71045-TC; 73630-TC; 74230-TC; 80048-TC; 80053-TC; 80061-TC; 80076-TC; 80202-TC; 81001; 82533; 82550-TC; 82570-TC; 82803-TC; 82962-TC; 83605-TC; 83735-TC; 83880; 83970; 84100-TC; 84155; 84165; 84300-TC; 84484-TC; 85025-TC; 85730-TC; 86803; 87040-TC; 87070-TC; 87081-TC; 87086-TC; 87186-TC; 87205-TC; 87806; 92526; 92611-TC; 93307-TC; 94640-TC; 94799-TC; 99082-TC; A4223; A6213; G0378; J0282; J0456; J0692; J0696; J1160; J1650; J1720; J1815; J1885; J1938; J2185; J2470; J3010; J3370; J3480; J3490; J7030; J7040; J7042; J7050; J7060; J7070

== ENCOUNTER 2024-11-17 18:26 | Inpatient (IN) | payer MEDICARE, OTHER ==
[~2024-11-17 18:26] MED LIST changes: -*INS REG SQ; +CITA10TA17 PO; -CITA20TA19 PO; -CYAN-51 PO; -GUAI100S11 GT; -GUAI100S69 PO; +HUM100IN SQ; -INSU100V28 SQ; +INSU100V7 SQ; -LACT30003 PO; -LEVO100T PO; +LEVO112T2 PO; +MELA5TAB PO; +METF-440 PO; +SENN-261 PO; +SODI100037 PO
[2024-11-17] MEDS ORDERED: LORAZEPAM INJ 2 MG/ML VIAL IV PRN (19:30)
[2024-11-17] MEDS ORDERED: MORPHINE SULFATE INJ 2 MG/ML DISP.SYRIN IV PRN (19:30)
[2024-11-17] MEDS: KEY,NONCONTROL,TO KEEP IN PYXI 1 EA MC ONE (19:52)
[2024-11-17 20:00] VITALS: BP 159/72; TEMP 97.7; O2SAT 95
[2024-11-17] MEDS: SCOPOLAMINE PATCH 1 MG/72HR TD SCH (20:07)
[2024-11-17] MEDS: MORPHINE SULFATE PF DRIP 100 MG in IV D5W 96 ML IV PRN (20:12)
[2024-11-18 04:00] VITALS: BP 85/38; TEMP 95; O2SAT 95
[2024-11-18 08:00] VITALS: BP_SYST 67; BP_SYST 71; BP_DIAS 23; BP_DIAS 26; TEMP 91.8; TEMP 92.1; O2SAT 99
[2024-11-18] MEDS: KEY,NONCONTROL,TO KEEP IN PYXI 1 EA MC ONE ×4 (09:03→21:04)
[2024-11-18 12:00] VITALS: BP 71/23; TEMP 92.1; O2SAT 99
[2024-11-18 18:00] VITALS: BP 65/43; TEMP 91.8; O2SAT 99
[2024-11-18 20:00] VITALS: BP 71/24; TEMP 91.9; O2SAT 100
[2024-11-18] MEDS: MORPHINE SULFATE PF DRIP 250 MG in IV D5W 240 ML IV PRN (20:51)
[2024-11-19 04:00] VITALS: BP 72/42; TEMP 92.3; O2SAT 100
[2024-11-19] MEDS: KEY,NONCONTROL,TO KEEP IN PYXI 1 EA MC ONE ×2 (19:18→20:35)
[2024-11-20] MEDS ORDERED: KEY,NONCONTROL,TO KEEP IN PYXI 1 EA MC ONE (06:02)
== END 2024-11-20 10:25 | DRG 720 ==
LOC: HOSPICE1 18:26
PROVIDERS: ADMIT Internal Medicine; ATTEND Internal Medicine
DX: A41.51 Sepsis due to Escherichia coli [E. coli] (principal); J96.01 Acute respiratory failure with hypoxia; J69.0 Pneumonitis due to inhalation of food and vomit; R65.21 Severe sepsis with septic shock; G93.41 Metabolic encephalopathy; E44.0 Moderate protein-calorie malnutrition; D63.8 Anemia in other chronic diseases classified elsewhere; E87.4 Mixed disorder of acid-base balance; L97.819 Non-pressure chronic ulcer of other part of right lower leg with unspecified severity; D68.59 Other primary thrombophilia; Z51.5 Encounter for palliative care; Z66 Do not resuscitate; F03.90 Unspecified dementia, unspecified severity, without behavioral disturbance, psychotic disturbance, mood disturbance, and anxiety; Z86.73 Personal history of transient ischemic attack (TIA), and cerebral infarction without residual deficits; I48.91 Unspecified atrial fibrillation; Z79.4 Long term (current) use of insulin; Z86.711 Personal history of pulmonary embolism; Z98.890 Other specified postprocedural states; Z79.84 Long term (current) use of oral hypoglycemic drugs; Z79.899 Other long term (current) drug therapy; Z79.51 Long term (current) use of inhaled steroids; Z79.890 Hormone replacement therapy; N39.0 Urinary tract infection, site not specified; B96.89 Other specified bacterial agents as the cause of diseases classified elsewhere; M89.8X9 Other specified disorders of bone, unspecified site; E11.51 Type 2 diabetes mellitus with diabetic peripheral angiopathy without gangrene; E78.5 Hyperlipidemia, unspecified; E03.9 Hypothyroidism, unspecified; E87.0 Hyperosmolality and hypernatremia; E88.09 Other disorders of plasma-protein metabolism, not elsewhere classified; I10 Essential (primary) hypertension; Y95 Nosocomial condition; Z16.24 Resistance to multiple antibiotics; Z74.01 Bed confinement status; B96.5 Pseudomonas (aeruginosa) (mallei) (pseudomallei) as the cause of diseases classified elsewhere; Z16.12 Extended spectrum beta lactamase (ESBL) resistance
CPT/HCPCS: 31720; A4223; G0378; J2274; J7050; J7060